=== PATIENT | female | born 1955 ===

== ENCOUNTER 2017-09-02 21:11 | Inpatient (IN) ==
[2017-09-02] MEDS ORDERED: MORPHINE 2 MG/1 ML SYRINGE ONE (21:30)
[2017-09-02] MEDS ORDERED: CALCIUM CHLORIDE 1,000 MG/10 ML SYRINGE IV ONE (21:30)
[2017-09-02] MEDS ORDERED: hydrALAZINE 20 MG/1 ML VIAL ONE (21:46)
[2017-09-02] MEDS ORDERED: ATROPINE 1 MG/1 ML VIAL ONE (21:47)
[2017-09-02 21:55] LABS: Basophils # 0.1 10*3/uL (0.0-0.2); Basophils % 0.5 % (0.0-0.8); Eosinophils # 0.5 10*3/uL (0.0-0.87); Eosinophils % 4.2 % (0.00-10.9); Hematocrit 28.8 VOL% (35.7-47.0); Hemoglobin 9.6 GM/DL (12.0-16.0); Immature Granulocytes % 0.5 %; Immature Granulocytes Absolute 0.05 #; Lymphocytes # 1.2 10*3/uL (1.4-4.0); Lymphocytes % 11.2 % (21.3-54.2); Mean Corpuscular HGB Conc 33.3 GM/DL (32-36); Mean Corpuscular Hemoglobin 32 PG (27-34); Mean Platelet Volume 10.7 FL (9.6-12.0); Monocytes # 0.7 10*3/uL (0.11-0.8); Monocytes % 6.6 % (1.7-12.7); Neutrophils # 8.2 10*3/uL (1.4-7.4); Platelet Count 159 T/CUMM (130-400); Red Blood Count 3.03 MC/CUMM (3.8-5.5); Red Cell Distribution Width 14.9 % (9.3-17.3); White Blood Count 10.7 T/CUMM (4-12)
[2017-09-02] MEDS ORDERED: SODIUM BICARBONATE 50 MEQ/50 ML SYRINGE IV ONE (21:55)
[2017-09-02] MEDS ORDERED: MIDAZOLAM 2 MG/2 ML VIAL ONE (21:57)
[2017-09-02 22:13] LABS: PT Patient Result 10.5 SECS
[2017-09-02] MEDS ORDERED: LIDOCAINE 1% 20 ML VIAL ONE (22:22)
[2017-09-02 22:24] LABS: Alanine Aminotransferase 36 U/L (13-56); Albumin 2.8 G/DL (3.4-5.0); Alkaline Phosphatase 139 U/L (45-117); Aspartate Amino Transferase 42 U/L (0-37); Bilirubin,Total < 0.39 MG/DL (0.2-1.0); Blood Urea Nitrogen 75 MG/DL (7-18); Calcium 10.6 MG/DL (8.5-10.1); Glucose 208 MG/DL (74-106); Osmolality,Calculated 300.8 MOS/KG (273-304); Potassium 5.7 MMOL/L (3.5-5.1); Sodium 137 MMOL/L (136-145); Total Protein 6.8 G/DL (6.4-8.3)
[2017-09-02 22:25] LABS: Troponin I Only 0.092 NG/ML (0.00-0.045)
[2017-09-02 22:29] LABS: Free T4 (Free Thyroxine) 1.11 NG/DL (0.76-1.46); Magnesium 2.1 MG/DL (1.8-2.4)
[2017-09-02 22:30] LABS: Troponin I Only 0.089 NG/ML (0.00-0.045)
[2017-09-02] MEDS ORDERED: SUCCINYLCHOLINE 200 MG/10 ML VIAL ONE (22:44)
[2017-09-02] MEDS ORDERED: VECURONIUM 10 MG VIAL IV ONE (22:45)
[2017-09-02] MEDS ORDERED: NITROGLYCERIN 2% OINT 1 INCH/GM PACK TOP STA (22:56)
[2017-09-02] MEDS ORDERED: SODIUM POLYSTYRENE SULFATE 15 GM/60 ML BOTTLE PO STA (22:56)
[2017-09-02] MEDS ORDERED: GLUCAGON 1 MG VIAL IM PRN (23:24)
[2017-09-02] MEDS ORDERED: DEXTROSE 50% 25 GM/50 ML VIAL IV PRN (23:24)
[2017-09-02] MEDS ORDERED: ALBUTEROL 2.5 MG/3 ML NEB RESP TX PRN (23:24)
[2017-09-02] MEDS ORDERED: hydrALAZINE 20 MG/1 ML VIAL IV PRN (23:36)
[2017-09-03] MEDS: PROPOFOL 1,000 MG/100 ML BOTTLE IV SCH ×2 (00:01→15:21)
[2017-09-03] MEDS: PANTOPRAZOLE 40 MG VIAL IV SCH ×2 (00:21→23:43)
[2017-09-03 00:30] LABS: Allen Test Positive; Pt O2 Delivery Device Ventilator
[2017-09-03 00:36] LABS: ABG Base Excess 3.8 MMOL/L (-2.5-2.5); ABG HCO3 27.9 MMOL/L (20-26); ABG PCO2 30.9 MM HG (35-48); ABG PH 7.534 (7.35-7.45); ABG TCO2 23.3 MMOL/L (23-27)
[2017-09-03] MEDS ORDERED: MIDAZOLAM 2 MG/2 ML VIAL IV ONE (01:20)
[2017-09-03] MEDS: INSULIN REGULAR 100 UNIT/ML SUBCUT SCH ×4 (01:43→22:48)
[2017-09-03 06:18] LABS: ABG Base Excess 2.4 MMOL/L (-2.5-2.5); ABG HCO3 26.5 MMOL/L (20-26); ABG Oxygen Saturation 99.8 % (95-100); ABG PCO2 28.5 MM HG (35-48); ABG PH 7.537 (7.35-7.45); ABG TCO2 21.7 MMOL/L (23-27)
[2017-09-03 06:40] LABS: Basophils % 0.3 % (0.0-0.8); Eosinophils # 0.2 10*3/uL (0.0-0.87); Eosinophils % 2.3 % (0.00-10.9); Hematocrit 31.1 VOL% (35.7-47.0); Hemoglobin 10.6 GM/DL (12.0-16.0); Immature Granulocytes % 0.4 %; Immature Granulocytes Absolute 0.04 #; Lymphocytes # 1.2 10*3/uL (1.4-4.0); Lymphocytes % 12.5 % (21.3-54.2); Mean Corpuscular HGB Conc 34.1 GM/DL (32-36); Mean Corpuscular Hemoglobin 31 PG (27-34); Mean Corpuscular Volume 91.5 FL (87-102); Mean Platelet Volume 10.9 FL (9.6-12.0); Monocytes # 0.7 10*3/uL (0.11-0.8); Monocytes % 6.8 % (1.7-12.7); Neutrophils # 7.5 10*3/uL (1.4-7.4); Neutrophils % 77.7 % (38.7-73.9); Platelet Count 155 T/CUMM (130-400); Red Cell Distribution Width 14.8 % (9.3-17.3); White Blood Count 9.7 T/CUMM (4-12)
[2017-09-03 07:19] LABS: Albumin 2.9 G/DL (3.4-5.0); Bilirubin,Total 0.5 MG/DL (0.2-1.0); Calcium 8.5 MG/DL (8.5-10.1); Potassium 4.7 MMOL/L (3.5-5.1); Total Protein 6.4 G/DL (6.4-8.3)
[2017-09-04] MEDS: INSULIN REGULAR 100 UNIT/ML SUBCUT SCH ×4 (00:32→17:36)
[2017-09-04] MEDS: PROPOFOL 1,000 MG/100 ML BOTTLE IV SCH ×4 (03:32→22:12)
[2017-09-04 05:02] LABS: Basophils % 0.2 % (0.0-0.8); Eosinophils # 0.3 10*3/uL (0.0-0.87); Eosinophils % 2.1 % (0.00-10.9); Hemoglobin 10.9 GM/DL (12.0-16.0); Immature Granulocytes % 0.5 %; Immature Granulocytes Absolute 0.06 #; Lymphocytes # 0.5 10*3/uL (1.4-4.0); Lymphocytes % 3.9 % (21.3-54.2); Mean Corpuscular Hemoglobin 31 PG (27-34); Mean Corpuscular Volume 93.2 FL (87-102); Mean Platelet Volume 11.2 FL (9.6-12.0); Monocytes # 1.1 10*3/uL (0.11-0.8); Monocytes % 8.6 % (1.7-12.7); Neutrophils # 10.7 10*3/uL (1.4-7.4); Neutrophils % 84.7 % (38.7-73.9); Platelet Count 142 T/CUMM (130-400); Red Blood Count 3.54 MC/CUMM (3.8-5.5); Red Cell Distribution Width 14.9 % (9.3-17.3); White Blood Count 12.7 T/CUMM (4-12)
[2017-09-04 05:13] LABS: PT Patient Result 10.6 SECS; Partial Thromboplastin Time 32.4 SECS (0-40)
[2017-09-04 05:29] LABS: Band Neutrophils 1 % (0-10); Eosinophils 3 % (0-10); Hypochromasia 1+; Lymphocytes 5 % (20-55); Segmented Neutrophils 83 % (50-85); Total Cells Counted 100
[2017-09-04 05:30] LABS: Microcytosis Slight; Platelet Estimate Adequate
[2017-09-04 05:34] LABS: Calcium 8.1 MG/DL (8.5-10.1); Osmolality,Calculated 285.8 MOS/KG (273-304); Potassium 4.2 MMOL/L (3.5-5.1)
[2017-09-04 05:37] LABS: ABG Base Excess 5.3 MMOL/L (-2.5-2.5); ABG HCO3 27.2 MMOL/L (20-26); ABG Oxygen Saturation 98.8 % (95-100); ABG PH 7.561 (7.35-7.45); ABG PO2 158.6 MM HG (80-95); ABG TCO2 28.1 MMOL/L (23-27)
[2017-09-04] MEDS ORDERED: ceFAZolin 1,000 MG in SYRINGE 1 EACH IV ONE (06:00)
[2017-09-04] MEDS ORDERED: diphenhydrAMINE CAP 25 MG CAPSULE PO ONE (06:00)
[2017-09-05] MEDS: PANTOPRAZOLE 40 MG VIAL IV SCH (00:13)
[2017-09-05] MEDS: INSULIN REGULAR 100 UNIT/ML SUBCUT SCH ×4 (00:17→18:03)
[2017-09-05] MEDS: PROPOFOL 1,000 MG/100 ML BOTTLE IV SCH ×3 (02:51→18:42)
[2017-09-05 03:39] LABS: Allen Test Positive; Pt O2 Delivery Device Ventilator
[2017-09-05 03:40] LABS: ABG Base Excess 2.7 MMOL/L (-2.5-2.5); ABG HCO3 26.8 MMOL/L (20-26); ABG PCO2 27.9 MM HG (35-48); ABG TCO2 21.9 MMOL/L (23-27)
[2017-09-05 04:37] LABS: Basophils % 0.2 % (0.0-0.8); Eosinophils # 0.2 10*3/uL (0.0-0.87); Eosinophils % 1.1 % (0.00-10.9); Hematocrit 32.9 VOL% (35.7-47.0); Hemoglobin 10.7 GM/DL (12.0-16.0); Immature Granulocytes % 0.7 %; Immature Granulocytes Absolute 0.11 #; Lymphocytes # 0.7 10*3/uL (1.4-4.0); Lymphocytes % 4.4 % (21.3-54.2); Mean Corpuscular HGB Conc 32.5 GM/DL (32-36); Mean Corpuscular Hemoglobin 31 PG (27-34); Mean Corpuscular Volume 95.4 FL (87-102); Mean Platelet Volume 11.3 FL (9.6-12.0); Monocytes % 6.5 % (1.7-12.7); Neutrophils # 12.9 10*3/uL (1.4-7.4); Neutrophils % 87.1 % (38.7-73.9); Platelet Count 142 T/CUMM (130-400); Red Blood Count 3.45 MC/CUMM (3.8-5.5); White Blood Count 14.8 T/CUMM (4-12)
[2017-09-05 05:03] LABS: Calcium 7.9 MG/DL (8.5-10.1); Osmolality,Calculated 286.1 MOS/KG (273-304); Potassium 4.3 MMOL/L (3.5-5.1)
[2017-09-05 05:20] LABS: Band Neutrophils 2 % (0-10); Eosinophils 1 % (0-10); Hypochromasia 1+; Lymphocytes 4 % (20-55); Platelet Estimate Normal; Segmented Neutrophils 88 % (50-85); Total Cells Counted 100
[2017-09-05 05:21] LABS: Giant Platelets Few; Microcytosis Slight
[2017-09-05] MEDS: PIPERACILLIN/TAZOBACTAM 3,375 MG in SODIUM CHLORIDE 0.9% 100 ML IV SCH ×2 (09:52→22:35)
[2017-09-05] MEDS ORDERED: HEPARIN/NACL 0.9% 2 UNITS/ML 1,000 ML IV ONE (12:24)
[2017-09-05] MEDS ORDERED: ceFAZolin 1,000 MG VIAL ONE (12:27)
[2017-09-05] MEDS ORDERED: LIDOCAINE 2%/EPI 20 ML VIAL ONE (12:45)
[2017-09-05] MEDS ORDERED: diphenhydrAMINE 50 MG/1 ML VIAL ONE (13:02)
[2017-09-05] MEDS ORDERED: NOREPINEPHRINE 4 MG/4 ML VIAL IV ONE (13:08)
[2017-09-06] MEDS: PROPOFOL 1,000 MG/100 ML BOTTLE IV SCH ×4 (01:05→23:50)
[2017-09-06] MEDS: PANTOPRAZOLE 40 MG VIAL IV SCH (01:08)
[2017-09-06] MEDS: INSULIN REGULAR 100 UNIT/ML SUBCUT SCH ×4 (01:10→17:23)
[2017-09-06 04:24] LABS: ABG Base Excess 3.8 MMOL/L (-2.5-2.5); ABG HCO3 27.9 MMOL/L (20-26); ABG Oxygen Saturation 99.9 % (95-100); ABG PH 7.555 (7.35-7.45); ABG TCO2 23.4 MMOL/L (23-27)
[2017-09-06 05:17] LABS: Basophils % 0.2 % (0.0-0.8); Eosinophils # 0.2 10*3/uL (0.0-0.87); Eosinophils % 1.5 % (0.00-10.9); Hematocrit 29.4 VOL% (35.7-47.0); Hemoglobin 9.9 GM/DL (12.0-16.0); Immature Granulocytes % 0.6 %; Immature Granulocytes Absolute 0.08 #; Lymphocytes # 0.6 10*3/uL (1.4-4.0); Lymphocytes % 4.7 % (21.3-54.2); Mean Corpuscular HGB Conc 33.7 GM/DL (32-36); Mean Corpuscular Hemoglobin 32 PG (27-34); Mean Corpuscular Volume 93.6 FL (87-102); Mean Platelet Volume 11.4 FL (9.6-12.0); Monocytes # 0.7 10*3/uL (0.11-0.8); Neutrophils # 11.7 10*3/uL (1.4-7.4); Platelet Count 133 T/CUMM (130-400); Red Blood Count 3.14 MC/CUMM (3.8-5.5); Red Cell Distribution Width 15.1 % (9.3-17.3); White Blood Count 13.3 T/CUMM (4-12)
[2017-09-06 05:36] LABS: Calcium 8.2 MG/DL (8.5-10.1); Osmolality,Calculated 286.4 MOS/KG (273-304); Potassium 3.9 MMOL/L (3.5-5.1)
[2017-09-06 05:50] LABS: Eosinophils 2 % (0-10); Giant Platelets Few; Hypochromasia 1+; Lymphocytes 4 % (20-55); Microcytosis Slight; Ovalocytes Slight; Platelet Estimate Normal; Segmented Neutrophils 91 % (50-85); Total Cells Counted 100
[2017-09-06] MEDS: PIPERACILLIN/TAZOBACTAM 3,375 MG in SODIUM CHLORIDE 0.9% 100 ML IV SCH ×2 (08:43→22:19)
[2017-09-06] MEDS: LATANOPROST 0.005% OPH SOLN 2.5 ML BOTTLE BOTH EYES SCH (10:31)
[2017-09-06] MEDS: oxyCODONE/ACETAMINOPHEN 5-325 MG TABLET PO PRN ×3 (10:31→17:44)
[2017-09-06] MEDS: POLYVINYL ALCOHOL 1.4% OPH SOLN 15 ML BOTTLE BOTH EYES SCH ×4 (10:31→22:19)
[2017-09-07] MEDS: PANTOPRAZOLE 40 MG VIAL IV SCH ×2 (00:07→23:20)
[2017-09-07] MEDS: INSULIN REGULAR 100 UNIT/ML SUBCUT SCH ×5 (00:09→23:28)
[2017-09-07] MEDS: PROPOFOL 1,000 MG/100 ML BOTTLE IV SCH ×3 (02:38→23:27)
[2017-09-07 03:32] LABS: ABG Base Excess 3.3 MMOL/L (-2.5-2.5); ABG HCO3 27.4 MMOL/L (20-26); ABG Oxygen Saturation 98.5 % (95-100); ABG PCO2 28.7 MM HG (35-48); ABG PH 7.551 (7.35-7.45); ABG TCO2 22.9 MMOL/L (23-27); Allen Test Positive; Pt O2 Delivery Device Ventilator
[2017-09-07 04:30] LABS: Phosphorous 5.3 MG/DL (2.5-4.9); Prealbumin 9.9 MG/DL (20-40)
[2017-09-07] MEDS: POLYVINYL ALCOHOL 1.4% OPH SOLN 15 ML BOTTLE BOTH EYES SCH ×4 (08:53→21:30)
[2017-09-07] MEDS: PIPERACILLIN/TAZOBACTAM 3,375 MG in SODIUM CHLORIDE 0.9% 100 ML IV SCH ×2 (08:53→21:30)
[2017-09-07] MEDS: LATANOPROST 0.005% OPH SOLN 2.5 ML BOTTLE BOTH EYES SCH (08:53)
[2017-09-07 11:19] LABS: Allen Test Positive
[2017-09-07 11:20] LABS: ABG Base Excess 0.7 MMOL/L (-2.5-2.5); ABG HCO3 25.1 MMOL/L (20-26); ABG Oxygen Saturation 97.7 % (95-100); ABG PCO2 44.7 MM HG (35-48); ABG PH 7.375 (7.35-7.45)
[2017-09-07] MEDS ORDERED: METOCLOPRAMIDE 10 MG/2 ML VIAL IV PRN (11:32)
[2017-09-08 04:34] LABS: Pt O2 Delivery Device Ventilator
[2017-09-08 04:35] LABS: ABG Base Excess 3.5 MMOL/L (-2.5-2.5); ABG HCO3 27.5 MMOL/L (20-26); ABG PH 7.569 (7.35-7.45); ABG TCO2 21.7 MMOL/L (23-27)
[2017-09-08 05:15] LABS: Basophils % 0.3 % (0.0-0.8); Eosinophils # 0.4 10*3/uL (0.0-0.87); Eosinophils % 4.2 % (0.00-10.9); Hematocrit 31.2 VOL% (35.7-47.0); Hemoglobin 10.4 GM/DL (12.0-16.0); Immature Granulocytes Absolute 0.09 #; Lymphocytes # 0.7 10*3/uL (1.4-4.0); Lymphocytes % 7.1 % (21.3-54.2); Mean Corpuscular HGB Conc 33.3 GM/DL (32-36); Mean Corpuscular Hemoglobin 32 PG (27-34); Mean Corpuscular Volume 94.5 FL (87-102); Mean Platelet Volume 11.2 FL (9.6-12.0); Monocytes # 0.5 10*3/uL (0.11-0.8); Monocytes % 5.4 % (1.7-12.7); Neutrophils # 7.7 10*3/uL (1.4-7.4); Platelet Count 160 T/CUMM (130-400); Red Cell Distribution Width 14.8 % (9.3-17.3); White Blood Count 9.4 T/CUMM (4-12)
[2017-09-08 05:51] LABS: Calcium 9.2 MG/DL (8.5-10.1); Osmolality,Calculated 281.8 MOS/KG (273-304); Potassium 3.7 MMOL/L (3.5-5.1)
[2017-09-08 06:20] LABS: ABG Base Excess 2.4 MMOL/L (-2.5-2.5); ABG HCO3 25.7 MMOL/L (20-26); ABG Oxygen Saturation 99.3 % (95-100); ABG PCO2 35.1 MM HG (35-48); ABG PH 7.483 (7.35-7.45); ABG PO2 313.6 MM HG (80-95); ABG TCO2 26.8 MMOL/L (23-27)
[2017-09-08] MEDS: INSULIN REGULAR 100 UNIT/ML SUBCUT SCH ×3 (06:23→17:22)
[2017-09-08 08:37] LABS: Allen Test Positive
[2017-09-08 08:38] LABS: ABG Base Excess 2.6 MMOL/L (-2.5-2.5); ABG HCO3 26.8 MMOL/L (20-26); ABG Oxygen Saturation 98.7 % (95-100); ABG PCO2 44.2 MM HG (35-48); ABG PH 7.405 (7.35-7.45); ABG TCO2 25.3 MMOL/L (23-27)
[2017-09-08] MEDS: POLYVINYL ALCOHOL 1.4% OPH SOLN 15 ML BOTTLE BOTH EYES SCH ×4 (09:53→21:29)
[2017-09-08] MEDS: PIPERACILLIN/TAZOBACTAM 3,375 MG in SODIUM CHLORIDE 0.9% 100 ML IV SCH ×2 (09:53→21:30)
[2017-09-08] MEDS: LATANOPROST 0.005% OPH SOLN 2.5 ML BOTTLE BOTH EYES SCH (09:53)
[2017-09-08] MEDS ORDERED: PHENOL 1.4% THROAT SPRAY 177 ML BOTTLE PO PRN (20:46)
[2017-09-08] MEDS: ZALEPLON 5 MG CAPSULE PO PRN (21:51)
[2017-09-09] MEDS: PANTOPRAZOLE 40 MG VIAL IV SCH (00:30)
[2017-09-09] MEDS: INSULIN REGULAR 100 UNIT/ML SUBCUT SCH ×4 (00:33→17:14)
[2017-09-09 03:40] LABS: ABG Base Excess 1.5 MMOL/L (-2.5-2.5); ABG HCO3 25.7 MMOL/L (20-26); ABG Oxygen Saturation 95.8 % (95-100); ABG PCO2 50.5 MM HG (35-48); ABG PO2 84.5 MM HG (80-95); ABG TCO2 25.2 MMOL/L (23-27); Allen Test Positive
[2017-09-09 04:24] LABS: Basophils # 0.1 10*3/uL (0.0-0.2); Basophils % 0.5 % (0.0-0.8); Eosinophils # 0.5 10*3/uL (0.0-0.87); Eosinophils % 4.5 % (0.00-10.9); Hematocrit 29.2 VOL% (35.7-47.0); Hemoglobin 9.8 GM/DL (12.0-16.0); Immature Granulocytes % 1.2 %; Immature Granulocytes Absolute 0.12 #; Lymphocytes # 0.6 10*3/uL (1.4-4.0); Lymphocytes % 5.3 % (21.3-54.2); Mean Corpuscular HGB Conc 33.6 GM/DL (32-36); Mean Corpuscular Hemoglobin 32 PG (27-34); Mean Corpuscular Volume 96.4 FL (87-102); Mean Platelet Volume 11.1 FL (9.6-12.0); Monocytes # 0.6 10*3/uL (0.11-0.8); Monocytes % 5.4 % (1.7-12.7); Neutrophils # 8.6 10*3/uL (1.4-7.4); Neutrophils % 83.1 % (38.7-73.9); Platelet Count 153 T/CUMM (130-400); Red Blood Count 3.03 MC/CUMM (3.8-5.5); Red Cell Distribution Width 14.8 % (9.3-17.3); White Blood Count 10.3 T/CUMM (4-12)
[2017-09-09 05:06] LABS: Calcium 8.7 MG/DL (8.5-10.1); Osmolality,Calculated 292.3 MOS/KG (273-304); Potassium 3.4 MMOL/L (3.5-5.1)
[2017-09-09] MEDS: POLYVINYL ALCOHOL 1.4% OPH SOLN 15 ML BOTTLE BOTH EYES SCH ×4 (08:24→21:54)
[2017-09-09] MEDS: LATANOPROST 0.005% OPH SOLN 2.5 ML BOTTLE BOTH EYES SCH (08:24)
[2017-09-09] MEDS: PIPERACILLIN/TAZOBACTAM 3,375 MG in SODIUM CHLORIDE 0.9% 100 ML IV SCH ×2 (08:33→21:42)
[2017-09-09] MEDS: ALBUTEROL/IPRATROPIUM 3 ML NEB RESP TX SCH ×2 (12:38→19:40)
[2017-09-09] MEDS: oxyCODONE/ACETAMINOPHEN 5-325 MG TABLET PO PRN (21:49)
[2017-09-10] MEDS: ALBUTEROL/IPRATROPIUM 3 ML NEB RESP TX SCH ×4 (01:04→20:49)
[2017-09-10] MEDS: INSULIN REGULAR 100 UNIT/ML SUBCUT SCH ×4 (01:17→17:12)
[2017-09-10] MEDS: PANTOPRAZOLE 40 MG VIAL IV SCH ×2 (01:17→22:42)
[2017-09-10] MEDS: oxyCODONE/ACETAMINOPHEN 5-325 MG TABLET PO PRN ×3 (04:13→22:43)
[2017-09-10 04:29] LABS: ABG Base Excess 2.7 MMOL/L (-2.5-2.5); ABG Oxygen Saturation 89.9 % (95-100); ABG PCO2 46.8 MM HG (35-48); ABG PH 7.395 (7.35-7.45); ABG PO2 55.3 MM HG (80-95); ABG TCO2 29.5 MMOL/L (23-27); Allen Test Positive; Pt O2 Delivery Device Room Air
[2017-09-10] MEDS: POLYVINYL ALCOHOL 1.4% OPH SOLN 15 ML BOTTLE BOTH EYES SCH ×4 (08:46→20:56)
[2017-09-10] MEDS: PIPERACILLIN/TAZOBACTAM 3,375 MG in SODIUM CHLORIDE 0.9% 100 ML IV SCH ×2 (08:46→20:55)
[2017-09-10] MEDS: LATANOPROST 0.005% OPH SOLN 2.5 ML BOTTLE BOTH EYES SCH (13:09)
[2017-09-11] MEDS: INSULIN REGULAR 100 UNIT/ML SUBCUT SCH ×4 (00:04→18:03)
[2017-09-11] MEDS: ALBUTEROL/IPRATROPIUM 3 ML NEB RESP TX SCH ×4 (00:41→20:18)
[2017-09-11] MEDS: PIPERACILLIN/TAZOBACTAM 3,375 MG in SODIUM CHLORIDE 0.9% 100 ML IV SCH ×4 (04:16→23:16)
[2017-09-11 06:12] LABS: Basophils # 0.1 10*3/uL (0.0-0.2); Basophils % 0.6 % (0.0-0.8); Eosinophils # 0.4 10*3/uL (0.0-0.87); Eosinophils % 5.1 % (0.00-10.9); Hematocrit 26.7 VOL% (35.7-47.0); Hemoglobin 8.9 GM/DL (12.0-16.0); Immature Granulocytes % 7.1 %; Immature Granulocytes Absolute 0.56 #; Lymphocytes # 0.6 10*3/uL (1.4-4.0); Lymphocytes % 7.5 % (21.3-54.2); Mean Corpuscular HGB Conc 33.3 GM/DL (32-36); Mean Corpuscular Hemoglobin 32 PG (27-34); Monocytes # 0.5 10*3/uL (0.11-0.8); Monocytes % 6.9 % (1.7-12.7); Neutrophils # 5.7 10*3/uL (1.4-7.4); Neutrophils % 72.8 % (38.7-73.9); Platelet Count 159 T/CUMM (130-400); Red Blood Count 2.81 MC/CUMM (3.8-5.5); Red Cell Distribution Width 14.8 % (9.3-17.3); White Blood Count 7.9 T/CUMM (4-12)
[2017-09-11 06:37] LABS: Magnesium 2.4 MG/DL (1.8-2.4); Phosphorous 5.5 MG/DL (2.5-4.9); Prealbumin 14.1 MG/DL (20-40)
[2017-09-11 06:41] LABS: Calcium 8.3 MG/DL (8.5-10.1); Osmolality,Calculated 286.4 MOS/KG (273-304); Potassium 3.6 MMOL/L (3.5-5.1)
[2017-09-11 06:50] LABS: Band Neutrophils 2 % (0-10); Eosinophils 8 % (0-10); Hypochromasia Slight; Lymphocytes 6 % (20-55); Segmented Neutrophils 71 % (50-85); Total Cells Counted 100
[2017-09-11 06:51] LABS: Platelet Estimate Adequate; Polychromasia Slight; Target Cells Slight
[2017-09-11] MEDS: POLYVINYL ALCOHOL 1.4% OPH SOLN 15 ML BOTTLE BOTH EYES SCH ×4 (09:23→20:44)
[2017-09-11] MEDS: LATANOPROST 0.005% OPH SOLN 2.5 ML BOTTLE BOTH EYES SCH (09:24)
[2017-09-11] MEDS: oxyCODONE/ACETAMINOPHEN 5-325 MG TABLET PO PRN (16:43)
[2017-09-11] MEDS: PANTOPRAZOLE 40 MG VIAL IV SCH (23:16)
[2017-09-12] MEDS: ALBUTEROL/IPRATROPIUM 3 ML NEB RESP TX SCH ×4 (00:12→19:32)
[2017-09-12] MEDS: INSULIN REGULAR 100 UNIT/ML SUBCUT SCH ×4 (00:37→19:20)
[2017-09-12] MEDS: POLYVINYL ALCOHOL 1.4% OPH SOLN 15 ML BOTTLE BOTH EYES SCH ×4 (08:49→20:42)
[2017-09-12] MEDS: PIPERACILLIN/TAZOBACTAM 3,375 MG in SODIUM CHLORIDE 0.9% 100 ML IV SCH (08:49)
[2017-09-12] MEDS: LATANOPROST 0.005% OPH SOLN 2.5 ML BOTTLE BOTH EYES SCH (08:49)
[2017-09-12] MEDS: oxyCODONE/ACETAMINOPHEN 5-325 MG TABLET PO PRN ×2 (14:31→20:41)
[2017-09-12] MEDS ORDERED: TUBERCULIN SKIN TEST 0.1 ML SYRINGE INTRADERM ONE (15:30)
[2017-09-12] MEDS: PANTOPRAZOLE 40 MG VIAL IV SCH (22:53)
[2017-09-12] MEDS: ZALEPLON 5 MG CAPSULE PO PRN (22:54)
[2017-09-13] MEDS: ALBUTEROL/IPRATROPIUM 3 ML NEB RESP TX SCH ×2 (00:15→07:44)
[2017-09-13] MEDS: INSULIN REGULAR 100 UNIT/ML SUBCUT SCH ×3 (00:59→12:27)
[2017-09-13] MEDS: POLYVINYL ALCOHOL 1.4% OPH SOLN 15 ML BOTTLE BOTH EYES SCH ×2 (08:38→12:28)
[2017-09-13] MEDS: LATANOPROST 0.005% OPH SOLN 2.5 ML BOTTLE BOTH EYES SCH (08:38)
[2017-09-13] MEDS: oxyCODONE/ACETAMINOPHEN 5-325 MG TABLET PO PRN (10:12)
[2017-09-13 12:19] VITALS: BP 163/74
== END 2017-09-13 14:48 | disposition home or self-care (01) | DRG 242 ==
LOC: EDUNIT# → EDBD → N.ED 21:20 → N.EDINP 21:20 → OBSVTOIN 23:10 → N.CC 23:37 → N.TELEN 09-09 15:59
PROVIDERS: ADMIT Internal Medicine; ATTEND Internal Medicine

== ENCOUNTER 2018-04-21 23:44 | Inpatient (IN) ==
[2018-04-22] MEDS ORDERED: ONDANSETRON 4 MG/2 ML VIAL IV PRN (02:23)
[2018-04-22] MEDS ORDERED: ACETAMINOPHEN 325 MG TABLET PO PRN (02:23)
[2018-04-22] MEDS ORDERED: hydrALAZINE 20 MG/1 ML VIAL IV PRN (02:31)
[2018-04-22] MEDS ORDERED: DEXTROSE 50% 25 GM/50 ML VIAL IV PRN (02:37)
[2018-04-22] MEDS ORDERED: GLUCAGON 1 MG VIAL IM PRN (02:37)
[2018-04-22] MEDS ORDERED: FUROSEMIDE 100 MG/10 ML VIAL IV STA (02:39)
[2018-04-22] MEDS ORDERED: metOLazone 5 MG TABLET PO ONE (03:00)
[2018-04-22] MEDS ORDERED: LEVOTHYROXINE 50 MCG TABLET PO SCH (06:00)
[2018-04-22] MEDS ORDERED: amLODIPine 2.5 MG TABLET PO SCH (09:00)
[2018-04-22] MEDS ORDERED: PANTOPRAZOLE 40 MG TABLET PO SCH (09:00)
[2018-04-22] MEDS: INSULIN LISPRO 100 UNIT/ML SUBCUT SCH ×2 (09:01→10:30)
[2018-04-22] MEDS: METOCLOPRAMIDE 5 MG TABLET PO SCH ×2 (09:01→10:30)
[2018-04-22 10:05] VITALS: BP 159/65
[2018-04-22] MEDS ORDERED: DORZOLAMIDE/TIMOLOL OPH SOLN 10 ML BOTTLE BOTH EYES SCH (11:00)
[2018-04-22] MEDS ORDERED: LATANOPROST 0.005% OPH SOLN 2.5 ML BOTTLE BOTH EYES SCH (11:00)
[2018-04-22] MEDS ORDERED: POLYVINYL ALCOHOL 1.4% OPH SOLN 15 ML BOTTLE BOTH EYES SCH (13:00)
[2018-04-22] MEDS ORDERED: glipiZIDE 10 MG TABLET PO SCH (21:00)
== END 2018-04-22 14:22 | disposition home or self-care (01) | DRG 291 ==
LOC: EDSEX → EDUNIT# → EDBD → N.ED 23:44 → N.EDINP 04-22 02:23 → N.5E 04-22 03:12
PROVIDERS: ADMIT Internal Medicine; ATTEND Internal Medicine

== ENCOUNTER 2019-10-08 13:03 | Observation (INO) ==
[2019-10-08] MEDS ORDERED: NITROGLYCERIN 2% OINT 1 INCH/GM PACK TOP STA (13:58)
[2019-10-08 14:18] LABS: Basophils % 0.5 % (0.0-0.8); Eosinophils # 0.6 10*3/uL (0.0-0.87); Eosinophils % 8.4 % (0.00-10.9); Hematocrit 35.6 VOL% (35.7-47.0); Hemoglobin 11.4 GM/DL (12.0-16.0); Immature Granulocytes % 0.5 %; Immature Granulocytes Absolute 0.04 #; Lymphocytes # 0.9 10*3/uL (1.4-4.0); Lymphocytes % 12.1 % (21.3-54.2); Mean Corpuscular Volume 95.7 FL (87-102); Mean Platelet Volume 10.7 FL (9.6-12.0); Monocytes % 7.3 % (1.7-12.7); Neutrophils % 71.2 % (38.7-73.9); Platelet Count 134 T/CUMM (130-400); Red Blood Count 3.72 MC/CUMM (3.8-5.5); White Blood Count 7.3 T/CUMM (4-12)
[2019-10-08 14:27] LABS: INR 0.9; PT Patient Result 10.3 SECS (9.6-12.2); Partial Thromboplastin Time 29.3 SECS (20.8-36.0)
[2019-10-08 14:42] LABS: Albumin 3.2 G/DL (3.4-5.0); Bilirubin,Total 0.6 MG/DL (0.2-1.0); Calcium 9.4 MG/DL (8.5-10.1); Total Protein 7.9 G/DL (6.4-8.3)
[2019-10-08] MEDS ORDERED: GLUCAGON 1 MG VIAL IM PRN (16:41)
[2019-10-08] MEDS ORDERED: DEXTROSE 50% 25 GM/50 ML VIAL IV PRN (16:41)
[2019-10-08] MEDS ORDERED: ONDANSETRON 4 MG/2 ML VIAL IV PRN (16:41)
[2019-10-08] MEDS ORDERED: ENOXAPARIN 30 MG/0.3 ML SYRINGE SUBCUT SCH (17:00)
[2019-10-08] MEDS ORDERED: amLODIPine 10 MG TABLET PO ONE (18:55)
[2019-10-08] MEDS ORDERED: hydrALAZINE 20 MG/1 ML VIAL IV PRN (18:55)
[2019-10-08] MEDS: INSULIN REGULAR 100 UNIT/ML SUBCUT SCH (22:12)
[2019-10-09] MEDS: ACETAMINOPHEN 325 MG TABLET PO PRN ×2 (02:47→13:39)
[2019-10-09 04:47] LABS: Basophils % 0.6 % (0.0-0.8); Eosinophils # 0.5 10*3/uL (0.0-0.87); Eosinophils % 7.4 % (0.00-10.9); Hematocrit 34.1 VOL% (35.7-47.0); Immature Granulocytes % 0.5 %; Immature Granulocytes Absolute 0.03 #; Lymphocytes # 0.8 10*3/uL (1.4-4.0); Lymphocytes % 13.3 % (21.3-54.2); Mean Corpuscular HGB Conc 32.3 GM/DL (32-36); Mean Corpuscular Volume 96.9 FL (87-102); Mean Platelet Volume 11.4 FL (9.6-12.0); Monocytes % 8.7 % (1.7-12.7); Neutrophils % 69.5 % (38.7-73.9); Platelet Count 132 T/CUMM (130-400); Red Blood Count 3.52 MC/CUMM (3.8-5.5); Red Cell Distribution Width 15.3 % (9.3-17.3); White Blood Count 6.3 T/CUMM (4-12)
[2019-10-09 05:25] LABS: Calcium 9.4 MG/DL (8.5-10.1); Osmolality,Calculated 277.8 MOS/KG (273-304)
[2019-10-09 08:52] LABS: Risk Ratio 2.03; VLDL CHOLESTEROL 24.2 MG/DL
[2019-10-09] MEDS ORDERED: ASPIRIN CHEW 81 MG TABLET PO SCH (09:00)
[2019-10-09] MEDS ORDERED: PANTOPRAZOLE 40 MG TABLET PO SCH (09:00)
[2019-10-09] MEDS ORDERED: LOSARTAN 25 MG TABLET PO SCH (09:00)
[2019-10-09] MEDS ORDERED: amLODIPine 10 MG TABLET PO SCH (09:00)
[2019-10-09 09:10] LABS: Troponin I 0.194 NG/ML (0.00-0.045)
[2019-10-09] MEDS: INSULIN REGULAR 100 UNIT/ML SUBCUT SCH ×2 (09:33→11:57)
[2019-10-09 16:37] VITALS: BP 135/72
[2019-10-09] MEDS ORDERED: ATORVASTATIN 20 MG TABLET PO SCH (21:00)
== END 2019-10-09 16:46 | disposition home or self-care (01) ==
LOC: EDBD → EDUNIT# → N.ED 13:03 → N.EDINP 13:03 → N.TELEN 18:19
PROVIDERS: ADMIT Internal Medicine; ATTEND Internal Medicine

== ENCOUNTER 2020-01-16 22:44 | Observation (INO) ==
[2020-01-17] MEDS ORDERED: ONDANSETRON 4 MG/2 ML VIAL IV PRN (03:00)
[2020-01-17] MEDS ORDERED: ACETAMINOPHEN 325 MG TABLET PO PRN (03:00)
[2020-01-17] MEDS ORDERED: diphenhydrAMINE CAP 25 MG CAPSULE PO PRN (03:00)
[2020-01-17] MEDS ORDERED: guaiFENesin/DM ER 600-30 MG TABLET PO PRN (03:00)
[2020-01-17] MEDS ORDERED: GLUCAGON 1 MG VIAL IM PRN (03:00)
[2020-01-17] MEDS ORDERED: NICOTINE 21 MG/24 HR PATCH TRANSDERM PRN (03:00)
[2020-01-17] MEDS ORDERED: hydrALAZINE 20 MG/1 ML VIAL IV PRN (03:00)
[2020-01-17] MEDS ORDERED: DEXTROSE 10% 250 ML BAG IV PRN (03:21)
[2020-01-17] MEDS ORDERED: DEXTROSE 50% 25 GM/50 ML VIAL IV PRN (06:13)
[2020-01-17] MEDS ORDERED: SODIUM CHLORIDE 0.9% 1,000 ML IV SCH (06:30)
[2020-01-17] MEDS ORDERED: LEVOTHYROXINE 125 MCG TABLET PO SCH (07:00)
[2020-01-17] MEDS ORDERED: INSULIN LISPRO 100 UNIT/ML SUBCUT SCH (08:00)
[2020-01-17 08:06] LABS: Basophils % 0.7 % (0.0-0.8); Eosinophils # 0.3 10*3/uL (0.0-0.87); Hematocrit 31.4 VOL% (35.7-47.0); Hemoglobin 10.2 GM/DL (12.0-16.0); Immature Granulocytes % 0.3 %; Immature Granulocytes Absolute 0.02 #; Lymphocytes # 0.8 10*3/uL (1.4-4.0); Lymphocytes % 13.2 % (21.3-54.2); Mean Corpuscular HGB Conc 32.5 GM/DL (32-36); Mean Corpuscular Volume 97.2 FL (87-102); Monocytes % 9.9 % (1.7-12.7); Neutrophils % 70.9 % (38.7-73.9); Platelet Count 116 T/CUMM (130-400); Red Blood Count 3.23 MC/CUMM (3.8-5.5); Red Cell Distribution Width 14.1 % (9.3-17.3); White Blood Count 6.1 T/CUMM (4-12)
[2020-01-17 08:59] LABS: Albumin 3.2 G/DL (3.4-5.0); Calcium 9.9 MG/DL (8.5-10.1); Osmolality,Calculated 270.5 MOS/KG (273-304); Thyroid Stimulating Hormone 9.81 uIU/ml (0.358-3.74); Total Protein 7.7 G/DL (6.4-8.3); VLDL CHOLESTEROL 21.4 MG/DL
[2020-01-17] MEDS ORDERED: ENOXAPARIN 30 MG/0.3 ML SYRINGE IV SCH (09:00)
[2020-01-17] MEDS ORDERED: ATORVASTATIN 40 MG TABLET PO SCH (09:00)
[2020-01-17] MEDS ORDERED: ASPIRIN CHEW 81 MG TABLET PO SCH (09:00)
[2020-01-17] MEDS ORDERED: DORZOLAMIDE/TIMOLOL OPH SOLN 10 ML BOTTLE BOTH EYES SCH (09:00)
[2020-01-17] MEDS: CALCIUM ACETATE 667 MG CAPSULE PO SCH ×2 (11:37→12:13)
[2020-01-17] MEDS ORDERED: ENOXAPARIN 30 MG/0.3 ML SYRINGE SUBCUT SCH (11:39)
[2020-01-17 17:25] VITALS: BP 188/77
== END 2020-01-17 18:02 | disposition home or self-care (01) ==
LOC: SUATTDRO 01-17 02:14 → INTOOBSV 01-17 02:14 → N.TELES 01-17 02:14
PROVIDERS: ADMIT Internal Medicine; ATTEND Internal Medicine Geriatric Medicine